=== PATIENT | female | born 1970 | race Two or more races ===

== ENCOUNTER 2017-04-24 10:15 | Inpatient (IN) | payer OTHER ==
[~2017-04-24] VITALS: Ht 170.2 cm; Wt 104.3 kg
[2017-04-24] MEDS ORDERED: CALTRATE 600 +1 EACH PO (13:45)
== END 2017-04-27 11:43 | disposition home or self-care (01) | DRG 743 ==
LOC: O/R 04-26 05:55 → RECOVERY 04-26 10:15 → OB/GYN 04-26 15:29
PROVIDERS: Obstetrics & Gynecology Gynecologic Oncology
PROC: 0UT24ZZ Resection of Bilateral Ovaries, Percutaneous Endoscopic Approach (ICD-10-PCS; 2017-04-26)
PROC: 0UT74ZZ Resection of Bilateral Fallopian Tubes, Percutaneous Endoscopic Approach (ICD-10-PCS; 2017-04-26)
PROC: 0DNW4ZZ Release Peritoneum, Percutaneous Endoscopic Approach (ICD-10-PCS; 2017-04-26)
PROC: 0TN74ZZ Release Left Ureter, Percutaneous Endoscopic Approach (ICD-10-PCS; 2017-04-26)
PROC: 0TN64ZZ Release Right Ureter, Percutaneous Endoscopic Approach (ICD-10-PCS; 2017-04-26)
PROC: 0UT94ZZ Resection of Uterus, Percutaneous Endoscopic Approach (ICD-10-PCS; principal; 2017-04-26 11:00)
DX: D25.1 Intramural leiomyoma of uterus (principal); N72 Inflammatory disease of cervix uteri; D27.1 Benign neoplasm of left ovary; I10 Essential (primary) hypertension; N93.8 Other specified abnormal uterine and vaginal bleeding; Z80.41 Family history of malignant neoplasm of ovary